=== PATIENT | female | born 2000 ===

== ENCOUNTER 2018-08-22 12:44 | Emergency (ER) | payer OTHER ==
[2018-08-22 12:45] VITALS: BMI 31.6
--- NOTE | 2018-08-22 13:38 | C.PDOC ---
History Of Present Illness Patient is 18 year old female presents to the ED for evaluation of lower abdominal pain that began last night. Patient states that the pain feels similar to contractions. She also reports associated headache, for which she took an as pirin yesterday. LMP was on July 16, 2018 and patient is . She denies hematuria, dysuria, fever, chills, vaginal bleeding, and discharge. Time Seen by Provider: 08/22/18 13:24 Chief Complaint (Nursing): Abdominal Pain History Per: Patient History/Exam Limitations: no limitations Onset/Duration Of Symptoms: Days (previous night ) Current Symptoms Are (Timing): Still Present Location Of Pain/Discomfort: Suprapubic Associated Symptoms: denies: Fever, Chills, Urinary Symptoms Alleviating Factors: None Additional History Per: Patient Abnormal Vaginal Bleeding: No Last Menstral Period: July 16 : 1 Para: 1 Past Medical History Reviewed: Historical Data, Nursing Documentation, Vital Signs Vital Signs: Last Vital Signs Temp 97.8 F 08/22/18 12:54 Pulse 70 08/22/18 12:54 Resp 20 08/22/18 12:54 BP 100/59 L 08/22/18 12:54 Pulse Ox 100 08/22/18 12:54 - Medical History PMH: No Chronic Diseases Surgical History: Appendectomy Other Surgeries: breast augmentation and abdominoplasty - [facility] Procedures DELIVERY OF PRODUCTS OF CONCEPTION, EXTERNAL APPROACH (11/17/16) MONITORING OF POC, CARDIAC RATE, BILINGUAL SPEECH LANGUAGE PATHOLOGIST APPROACH (11/17/16) REPAIR VAGINA, EXTERNAL APPROACH (11/17/16) Family History: States: Unknown Family Hx - Social History Hx Alcohol Use: No Hx Substance Use: No - Immunization History Hx Tetanus Toxoid Vaccination: No Hx Influenza Vaccination: No Hx Pneumococcal Vaccination: No Review Of Systems Constitutional: Negative for: Fever, Chills Gastrointestinal: Positive for: Abdominal Pain. Negative for: Nausea, Vomiting Genitourinary: Negative for: Dysuria, Hematuria, Vaginal Discharge, Vaginal Bleeding Neurological: Positive for: Headache Physical Exam - Physical Exam Appears: Non-toxic, No Acute Distress Skin: Warm, Dry, No Rash Head: Atraumatic, Normacephalic Eye(s): bilateral: Normal Inspection Oral Mucosa: Moist Neck: Normal ROM Chest: Symmetrical Cardiovascular: Rhythm Regular, No Murmur Respiratory: Normal Breath Sounds, No Rales, No Rhonchi, No Wheezing Gastrointestinal/Abdominal: Bowel Sounds (active), Soft, Tenderness (suprapubic and RLQ tenderness), No Guarding Back: No CVA Tenderness, No Vertebral Tenderness Extremity: Bilateral: Atraumatic, Normal Color And Temperature, Normal ROM Neurological/Psych: Oriented x3, Normal Speech ED Course And Treatment - Laboratory Results Result Diagrams: 08/22/18 14:37 08/22/18 14:37 O2 Sat by Pulse Oximetry: 100 (on RA) Pulse Ox Interpretation: Normal - CT Scan/US Transpelvic US Other Rad Studies (CT/US): Read By Radiologist, Radiology Report Reviewed CT/US Interpretation: Date of service: 08/22/2018. PROCEDURE: Transabdominal and transvaginal technique utilized. HISTORY: LMP 07/13/2018. UTERUS: Gestational sac: An intrauterine fluid like sac is present this is out of range it measures 0.44 cm in mean sac diameter. No yolk sac pole identified. An early intrauterine gestation less than 6 weeks or a pseudo gestational sac of an ectopic are considerations in this patient with beta HCG level of 1701. No gross adnexal masses seen. No extra uterine viable identified. Uterus measures 8.5 x 4.6 x 5.7 cm. Retroverted uterus without masses. Cervical length 3.2 cm. RIGHT OVARY: Measures 3.1 x 2.4 x 2.2 cm. No mass lesion. Normal flow. LEFT OVARY: Measures 4.0 x 2.3 x 3.4 cm. No solid mass. Normal flow. FREE FLUID: Present. OTHER FINDINGS: None. IMPRESSION: Intrauterine fluid like sac-an early less than 6 week gestation without yolk sac or pole is 1 consideration. A pseudo gestational sac of an ectopic is another. Consider follow-up transvaginal ultrasound imaging in 10 to 14 days. Medical Decision Making Medical Decision Making: Impression: Suprapubic pain Plan: * Urinalysis * Urine HCG Progress: Labs reviewed, + HCG. Transvaginal/Pelvic ultrasound ordered. Labs ordered. All diagnostics reviewed BHCG was 1700. US shows IUP estimate 6 weeks. Patient remained well and in no distress. I discussed results with the patient and the plan for discharge. I explain to the patient she must follow up in one week with fence erector to repeat blood work and US in 10-14 days. Disposition Counseled Patient/Family Regarding: Diagnosis, Need For Followup, Rx Given - [facility]position [facility] Disposition: HOME/ ROUTINE Disposition Time: 16:43 Condition: STABLE Additional Instructions: Usted fue evaluado hoy por trevor sntomas agudos. Los estudios realizados muestran que usted tiene christine infeccin de orina y est embarazada. [place] antibiticos dos veces al da y comience con la vitamina . Nathaniel un seguimiento en la clnica o con taylor mdico para obtener ms atencin y manejo. Prescriptions: Nitrofurantoin Macrocrystals [Macrobid] 1 cap PO BID #14 cap Instructions: Urinary Tract Infections in Adults, (ED) Print Language: [place] - POA Present On Arrival: None - Clinical Impression Clinical Impression: Positive test, UTI (urinary tract infection) - PA / CAFETERIA CASHIER / Resident Statement MD/DO has reviewed & agrees with the documentation as recorded. - Scribe Statement The provider has reviewed the documentation as recorded by the Narinder Hou All medical record entries made by the Narinder were at my direction and personally dictated by me. I have reviewed the chart and agree that the record accurately reflects my personal performance of the history, physical exam, medical decision making, and the department course for this patient. I have also personally directed, reviewed, and agree with the discharge instructions and disposition.
[2018-08-22 14:02] LABS: HCG,QUALITATIVE URINE POSITIVE (NEGATIVE)
[2018-08-22] MEDS ORDERED: Sodium Chloride 0.9% 1,000 ML IV ONE (14:05)
[2018-08-22] MEDS ORDERED: Sodium Chloride 0.9% 1,000 ML ONE (14:31)
[2018-08-22 14:41] LABS: BASO # 0.1 K/uL (0.0-0.2); BASO % 0.7 % (0.0-2.0); EOS # 0.1 K/uL (0.0-0.7); EOS % 1.3 % (0.0-4.0); LYMPH # 2.6 K/uL (1.0-4.3); MEAN CELL VOLUME 77.2 fL (81.0-99.0); MEAN CORPUSCULAR HEMOGLOBIN 25.3 pg (27.0-31.0); MEAN CORPUSCULAR HGB CONC 32.8 g/dL (33.0-37.0); MEAN PLATELET VOLUME 7.1 fL (7.2-11.7); MONO # 0.5 K/uL (0.0-0.8); MONO % 5.8 % (0.0-10.0); NEUT # 5.2 K/uL (1.8-7.0); NEUT % 61.2 % (50.0-75.0); NRBC % 0.1 % (0.0-2.0); RBC 4.74 Mil/uL (3.80-5.20); RED CELL DISTRIBUTION WIDTH 16.1 % (11.5-14.5); WHITE BLOOD COUNT 8.4 K/uL (4.8-10.8)
[2018-08-22 14:51] LABS: SQUAMOUS EPITHIAL 2 /hpf (0-5); URINE BACTERIA RARE (<OCC); URINE BILIRUBIN NEGATIVE (NEGATIVE); URINE BLOOD NEGATIVE (NEGATIVE); URINE CLARITY Clear (Clear); URINE COLOR Yellow (YELLOW); URINE GLUCOSE (UA) NORMAL (Normal); URINE LEUKOCYTE ESTERASE 1+ Leu/uL (Negative); URINE PROTEIN NEGATIVE (NEGATIVE); URINE UROBILINOGEN NORMAL mg/dL (0.2-1.0)
[2018-08-22 15:16] LABS: ALB/GLOB RATIO 1.5 (1.0-2.1); ALBUMIN 4.2 g/dL (3.5-5.0); ALT/SGPT 17 U/L (9-52); AST/SGOT 24 U/L (14-36); BLOOD UREA NITROGEN 6 mg/dL (7-17); CALCIUM 8.6 mg/dl (8.6-10.4); GFR NON-AFRICAN AMERICAN > 60
--- NOTE | 2018-08-22 16:12 | US ---
Date of service: 08/22/2018 PROCEDURE: Transabdominal and transvaginal technique utilized. HISTORY: LMP 07/13/2018 UTERUS: Gestational sac: An intrauterine fluid like sac is present this is out of range it measures 0.44 cm in mean sac diameter. No yolk sac pole identified. An early intrauterine gestation less than 6 weeks or a pseudo gestational sac of an ectopic are considerations in this patient with beta HCG level of 1701. No gross adnexal masses seen. No extra uterine viable identified. Uterus measures 8.5 x 4.6 x 5.7 cm. Retroverted uterus without masses. Cervical length 3.2 cm. RIGHT OVARY: Measures 3.1 x 2.4 x 2.2 cm. No mass lesion. Normal flow. LEFT OVARY: Measures 4.0 x 2.3 x 3.4 cm. No solid mass. Normal flow. FREE FLUID: Present OTHER FINDINGS: None IMPRESSION: Intrauterine fluid like sac-an early less than 6 week gestation without yolk sac or pole is 1 consideration. A pseudo gestational sac of an ectopic is another. Consider follow-up transvaginal ultrasound imaging in 10 to 14 days.
[2018-08-22 16:43] VITALS: BP 96/52; PULSE 82; RESP 18; TEMP 98.6
[2018-08-22 16:45] VITALS: O2SAT 100
== END 2018-08-22 17:08 | disposition home or self-care (01) ==
LOC: C.ER 12:44
DX: O23.41 Unspecified infection of urinary tract in pregnancy, first trimester (principal); Z3A.01 Less than 8 weeks gestation of pregnancy; Z32.01 Encounter for pregnancy test, result positive
CPT/HCPCS: 76805; 76817; 80053; 81001; 84702; 84703; 85025; 87086; 87181; 96360; 99285; J7030